=== PATIENT | male | born 1965 | race Caucasian/White ===

== ENCOUNTER 2019-08-25 09:25 | Observation (INO) | payer BC ==
[~2019-08-25] VITALS: Ht 170.2 cm; Wt 100.7 kg
[~2019-08-25 09:25] MED LIST: ASPI-1155 PO; GLUXR500 PO; INSU100V9 SUBCUT; LIP10 PO; LIRA0.6P PO; RAMI5CAP PO
[2019-08-25 09:31] VITALS: BP_SYST 165
[2019-08-25] MEDS ORDERED: KETOROLAC TROMETHAMINE 60 MG/2 ML VIAL IM ONE (09:45)
[2019-08-25 10:31] LABS: BASOPHILS # (AUTO) 0.1 K/uL (0.0-0.2); BASOPHILS % (AUTO) 0.6 % (0.0-2.0); EOSINOPHILS % (AUTO) 0.1 % (0.0-4.0); HEMATOCRIT 48.4 % (36-54); HEMOGLOBIN 16.6 g/dL (14.0-18.0); LYMPHOCYTES # (AUTO) 0.9 K/uL (1.0-5.5); LYMPHOCYTES % (AUTO) 7.9 % (20.5-51.5); MEAN CORPUSCULAR HEMOGLOBIN 30 pg (27-31); MEAN CORPUSCULAR HGB CONC 34 % (32-36); MEAN CORPUSCULAR VOLUME 88 fL (79.0-98.0); MONOCYTES # (AUTO) 0.5 K/uL (0.0-1.0); MONOCYTES % (AUTO) 4.9 % (1.7-9.3); NEUTROPHILS # (AUTO) 9.4 K/uL (1.8-7.7); NEUTROPHILS % (AUTO) 86.5 % (40.0-70.0); PLATELET COUNT (AUTO) 256 K/uL (130-430); RED BLOOD CELL COUNT(AUTO) 5.48 MIL/uL (4.2-6.2); RED CELL DISTRIBUTION WIDTH 12.7 % (9.0-15.0); WHITE BLOOD COUNT (AUTO) 10.9 K/uL (4.8-10.8)
[2019-08-25] MEDS ORDERED: GASTROGRAFIN 120 ML ONE (10:32)
[2019-08-25 10:43] LABS: CALCIUM 9.1 mg/dL (8.4-11.0); CREATININE 1.02 mg/dL (0.55-1.30); POTASSIUM 3.9 mmol/L (3.5-5.1)
[2019-08-25 10:49] LABS: ALBUMIN 4.1 g/dL (3.4-4.8); TOTAL BILIRUBIN 0.5 mg/dL (0.0-1.0)
[2019-08-25] MEDS ORDERED: MORPHINE 4 MG/ML INJ. SYRINGE IVP PRN (12:00)
[2019-08-25] MEDS ORDERED: ONDANSETRON HCL 4 MG/2 ML VIAL IVP PRN (12:00)
[2019-08-25] MEDS ORDERED: METOCLOPRAMIDE HCL 10 MG/2 ML VIAL IVP PRN (12:00)
[2019-08-25] MEDS ORDERED: MORPHINE 2 MG/ML INJ. SYRINGE IVP PRN (12:00)
[2019-08-25] MEDS ORDERED: DEXTROSE 50% JECT 50 ML DISP.SYRIN IVP PRN (12:00)
[2019-08-25] MEDS ORDERED: fentaNYL CITRATE/PF 100 MCG/2 ML AMP IVP ONE (13:00)
[2019-08-25] MEDS ORDERED: PRAV20TA PO (13:02)
[2019-08-25 13:35] VITALS: BP_SYST 124
[2019-08-25] MEDS: D5NS 1,000 ML IV SCH ×2 (14:12→22:03)
[2019-08-25 16:33] VITALS: BP_SYST 156
[2019-08-25] MEDS: INSULIN REGULAR, HUMAN 100 UNITS/ML, 10 ML VIAL (humuLIN R) SUBCUT PRN ×2 (17:06→23:40)
[2019-08-25 20:00] VITALS: BP_SYST 118
[2019-08-26 00:37] VITALS: BP_SYST 113
[2019-08-26] MEDS: INSULIN REGULAR, HUMAN 100 UNITS/ML, 10 ML VIAL (humuLIN R) SUBCUT PRN ×3 (05:32→18:20)
[2019-08-26] MEDS: D5NS 1,000 ML IV SCH ×3 (05:33→19:59)
[2019-08-26 08:00] VITALS: BP_SYST 121
[2019-08-26] MEDS: ACETAMINOPHEN 325 MG TABLET PO PRN ×2 (12:16→19:38)
[2019-08-26 12:27] VITALS: BP_SYST 115
[2019-08-26 16:19] VITALS: BP_SYST 129
[2019-08-26 19:48] VITALS: BP_SYST 128
[2019-08-26 20:00] VITALS: BP_SYST 138
== END 2019-08-26 20:30 | disposition home or self-care (01) ==
LOC: SED 09:25 → SMU 11:32 → INTOOBSV 11:32 → SMU 12:07
PROVIDERS: ADMIT Internal Medicine Hospice and Palliative Medicine; ATTEND Internal Medicine Hospice and Palliative Medicine
DX: R10.9 Unspecified abdominal pain (principal); E11.9 Type 2 diabetes mellitus without complications; K56.690 Other partial intestinal obstruction; I10 Essential (primary) hypertension; Z79.899 Other long term (current) drug therapy; Z79.82 Long term (current) use of aspirin; Z79.4 Long term (current) use of insulin
CPT/HCPCS: 36415; 74018; 74250; 80053; 82962 ×2; 83690; 85025; 96372 ×3; 96374; 99291; G0378; J1885; J3010; J7042 ×2; J7120; Q9963

== ENCOUNTER 2020-12-19 05:00 | Emergency (ER) | payer BC ==
[~2020-12-19] VITALS: Ht 170.2 cm; Wt 95.3 kg
[~2020-12-19 05:00] MED LIST changes: -LIP10 PO; -LIRA0.6P PO; +PRAV20TA PO
[2020-12-19 05:09] VITALS: BP_SYST 146
[2020-12-19] MEDS ORDERED: DULA3PEN SUBCUT (05:23)
[2020-12-19] MEDS ORDERED: METO25TA6 PO (05:24)
[2020-12-19] MEDS: MAG HYDROX/AL HYDROX/SIMETH 30 ML, DICYCLOMINE HCL 20 MG, LIDOCAINE VISCOUS 2% 15ML (PO... PO ONE ×3 (06:26)
[2020-12-19 06:38] LABS: BASOPHILS % (AUTO) 0.5 % (0.0-2.0); EOSINOPHILS # (AUTO) 0.1 K/uL (0.0-0.4); EOSINOPHILS % (AUTO) 1.3 % (0.0-4.0); HEMATOCRIT 42.3 % (36-54); HEMOGLOBIN 14.8 g/dL (14.0-18.0); LYMPHOCYTES # (AUTO) 1.4 K/uL (1.0-5.5); LYMPHOCYTES % (AUTO) 14.3 % (20.5-51.5); MEAN CORPUSCULAR HEMOGLOBIN 30 pg (27-31); MEAN CORPUSCULAR HGB CONC 35 % (32-36); MEAN CORPUSCULAR VOLUME 87 fL (79.0-98.0); MONOCYTES # (AUTO) 0.9 K/uL (0.0-1.0); MONOCYTES % (AUTO) 8.8 % (1.7-9.3); NEUTROPHILS # (AUTO) 7.5 K/uL (1.8-7.7); NEUTROPHILS % (AUTO) 75.1 % (40.0-70.0); PLATELET COUNT (AUTO) 254 K/uL (130-430); RED BLOOD CELL COUNT(AUTO) 4.88 MIL/uL (4.2-6.2); RED CELL DISTRIBUTION WIDTH 13.1 % (9.0-15.0); WHITE BLOOD COUNT (AUTO) 9.9 K/uL (4.8-10.8)
[2020-12-19 06:42] LABS: CALCIUM 8.7 mg/dL (8.4-11.0); CREATININE 1.03 mg/dL (0.55-1.30); POTASSIUM 3.5 mmol/L (3.5-5.1)
[2020-12-19 06:46] LABS: ALBUMIN 3.7 g/dL (3.4-4.8); TOTAL BILIRUBIN 0.5 mg/dL (0.0-1.0)
[2020-12-19] MEDS ORDERED: KETOROLAC TROMETHAMINE 30 MG VIAL IVP ONE (07:15)
[2020-12-19] MEDS ORDERED: NACL 0.9% 1,000 ML IV ONE (07:15)
[2020-12-19 08:00] VITALS: BP_SYST 140
[2020-12-19] MEDS ORDERED: OMEP40CA13 PO (08:14)
[2020-12-19] MEDS ORDERED: TRAM50TA2 PO (08:14)
== END 2020-12-19 08:00 | disposition home or self-care (01) ==
LOC: SED 05:00
DX: R10.13 Epigastric pain (principal); E11.9 Type 2 diabetes mellitus without complications; Z79.4 Long term (current) use of insulin; Z79.899 Other long term (current) drug therapy
CPT/HCPCS: 36415; 74021; 74176; 76376; 80053; 83690; 85025; 85730; 99285; J1885; J2001

== ENCOUNTER 2023-08-01 20:47 | Emergency (ER) | payer BC ==
[~2023-08-01] VITALS: Ht 170.2 cm; Wt 97.5 kg
[~2023-08-01 20:47] MED LIST changes: +DULA3PEN SUBCUT; +METO25TA6 PO; +OMEP40CA20 PO; +TRAM50TA2 PO
[2023-08-01 21:01] VITALS: BP_SYST 130; PULSE 97; RESP 22; TEMP 97.7; O2SAT 99
[2023-08-01 21:44] LABS: BASOPHILS % (AUTO) 0.6 % (0.0-2.0); EOSINOPHILS # (AUTO) 0.1 K/uL (0.0-0.4); EOSINOPHILS % (AUTO) 0.9 % (0.0-4.0); HEMATOCRIT 46.8 % (36-54); LYMPHOCYTES # (AUTO) 1.8 K/uL (1.0-5.5); LYMPHOCYTES % (AUTO) 24.2 % (20.5-51.5); MEAN CORPUSCULAR HEMOGLOBIN 29 pg (27-31); MEAN CORPUSCULAR HGB CONC 34 % (32-36); MEAN CORPUSCULAR VOLUME 86 fL (79.0-98.0); MONOCYTES # (AUTO) 0.7 K/uL (0.0-1.0); MONOCYTES % (AUTO) 9.2 % (1.7-9.3); NEUTROPHILS # (AUTO) 4.8 K/uL (1.8-7.7); NEUTROPHILS % (AUTO) 65.1 % (40.0-70.0); PLATELET COUNT (AUTO) 284 K/uL (130-430); RED BLOOD CELL COUNT(AUTO) 5.43 MIL/uL (4.2-6.2); RED CELL DISTRIBUTION WIDTH 13.1 % (9.0-15.0); WHITE BLOOD COUNT (AUTO) 7.4 K/uL (4.8-10.8)
[2023-08-01 21:56] LABS: BILIRUBIN,URINE NEGATIVE (NEGATIVE); BLOOD, URINE NEGATIVE (NEGATIVE); CLARITY/URINE CLEAR (CLEAR); COLOR,URINE YELLOW (YELLOW); GLUCOSE,URINE 3+ (NEGATIVE); KETONES,URINE NEGATIVE (NEGATIVE); LEUKOCYTE ESTERASE ,URINE NEGATIVE (NEGATIVE); NITRITE, URINE NEGATIVE (NEGATIVE); PROTEIN URINE NEGATIVE (NEGATIVE); UROBILINOGEN,URINE 0.2 (0.2-1.0)
[2023-08-01 22:03] LABS: ALBUMIN 3.9 g/dL (3.4-4.8); CALCIUM 9.5 mg/dL (8.4-11.0); CREATININE 1.06 mg/dL (0.55-1.30); POTASSIUM 4.5 mmol/L (3.5-5.1); TOTAL BILIRUBIN 0.4 mg/dL (0.0-1.0); TOTAL PROTEIN, SERUM 7.5 g/dL (6.4-8.3)
[2023-08-01 22:04] VITALS: TEMP 97
[2023-08-01 22:10] LABS: BACTERIA,URINE FEW /HPF (None Seen); RBC,URINE 0-3 /HPF (0-3); WBC,URINE 0-3 /HPF (0-3)
[2023-08-01] MEDS: MORPHINE 4 MG INJ. 4 MG/ML VIAL IVP ONE (22:51)
[2023-08-02] MEDS ORDERED: AUG875 PO (00:12)
[2023-08-02] MEDS ORDERED: HYDR-3917 PO (00:38)
[2023-08-02] MEDS: HYDROcodone/ACETAMIN 5-325 MG TAB (NORCO/ VICODIN) PO ONE (00:46)
[2023-08-02 01:39] VITALS: BP_SYST 123; PULSE 90; RESP 18; O2SAT 94
== END 2023-08-02 01:39 | disposition home or self-care (01) ==
LOC: SED 20:47
DX: R10.9 Unspecified abdominal pain (principal); E11.9 Type 2 diabetes mellitus without complications; Z79.4 Long term (current) use of insulin; Z79.899 Other long term (current) drug therapy
CPT/HCPCS: 99285; 74176; 96374; 80053; 81001; 83690; 85025; 36415; 81000; 81015; J2270